=== PATIENT | male | born 2000 | race Caucasian/White ===

== ENCOUNTER → 2024-05-27 | Outpatient (CLI) | payer OTHER | LOC: M LAB 15:21 | PROVIDERS: ATTEND Internal Medicine Critical Care Medicine | DX: J45.990 Exercise induced bronchospasm (principal) ==

== ENCOUNTER → 2024-06-11 | Outpatient (CLI) | payer OTHER ==
[~2024-06-11] MED LIST: METHACHOLINE KIT (6 VIAL.NEB PREMIX) INH ONE
== END ==
LOC: M CARPUL 07:30 → EDUNIT# 08:00
PROVIDERS: ATTEND Internal Medicine Critical Care Medicine
DX: J45.990 Exercise induced bronchospasm (principal)